=== PATIENT | male | born 1970 | race Caucasian/White ===

== ENCOUNTER 2019-01-24 05:28 | Emergency (ER) | payer OTHER ==
[2019-01-24] MEDS ORDERED: diphenhydrAMINE 50 MG/ML SDV IVPUSH ONE (05:49)
[2019-01-24] MEDS ORDERED: methylPREDNISolone Sodium Succinate 125 MG/2 ML SDV IVPUSH ONE (05:50)
[2019-01-24] MEDS ORDERED: Famotidine 20 MG/2 ML SDV IVPUSH ONE (05:50)
--- NOTE | 2019-01-24 05:56 | EDM.PDOC ---
ED HPI GENERAL MEDICAL PROBLEM - General Chief Complaint: Allergic Reaction Stated Complaint: ALLERGIC REACTION Time Seen by Provider: 01/24/19 05:44 Source of Information: Reports: Patient History Limitations: Reports: No Limitations - History of Present Illness INITIAL COMMENTS - FREE TEXT/NARRATIVE: This is a 48-year-old male. He flew into [facility] around midnight. He noted when he got back to his apartment he began to have some swelling of the face and the upper lip and developed a rash. He felt like his throat was closing and he had a lump in his throat. He took some Benadryl and some Claritin and comes to the ER for evaluation. He states that he had a rash on his back especially. He does feel like his throat is better but he still has a lump and he is breathing okay and has had no wheezing. He says he's had reactions like this for the last couple of years and they seem to be random. They have and are doing a workup but they can't seem to find out why he is having these reactions. He takes no prescription medications. He denies eating anything unusual or anything he hasn't eaten in the past. No recent illnesses. - Related Data Allergies Allergy/AdvReac Type Severity Reaction Status Date / Time No Known Allergies Allergy Verified 01/24/19 05:35 Home Meds: Home Meds Loratadine [Claritin] 10 mg PO DAILY 01/24/19 [History] diphenhydrAMINE [Benadryl] 50 mg PO DAILY 01/24/19 [History] Past Medical History - Past Health History Medical/Surgical History: Denies Medical/Surgical History Social & Family History - Family History Family Medical History: Noncontributory - Tobacco Use Smoking Status *Q: Never Smoker Second Hand Smoke Exposure: No - Caffeine Use Caffeine Use: Reports: Coffee, Soda - Recreational Drug Use Recreational Drug Use: No ED ROS ALLERGIC REACTION - Review of Systems Review Of Systems: See Below Constitutional: Denies: Fever, Chills HEENT: Reports: Other (As per history of present illness) Respiratory: Denies: Shortness of Breath, Wheezing, Cough Cardiovascular: Denies: Chest Pain Endocrine: Reports: No Symptoms GI/Abdominal: Reports: No Symptoms : Reports: No Symptoms Musculoskeletal: Reports: No Symptoms Skin: Reports: Pruritis, Rash, Other (As per history of present illness) Neurological: Reports: No Symptoms Psychiatric: Reports: No Symptoms Hematologic/Lymphatic: Reports: No Symptoms ED EXAM GENERAL NO PERIP PULSE - Physical Exam Exam: See Below Exam Limited By: No Limitations General Appearance: Alert, WD/WN, No Apparent Distress Eye Exam: Bilateral Eye: Normal Inspection (He does have some puffiness around his eyes noted) Ears: Normal External Exam, Normal Canal, Normal TMs Nose: Normal Inspection Throat/Mouth: No Airway Compromise, Other (The oropharynx does not appear to be especially swollen the uvula and the soft palate are minimally swollen, he does have a swollen upper lip but not a lower lip or a tongue) Head: Normocephalic Neck: Supple Respiratory/Chest: No Respiratory Distress, Lungs Clear, Normal Breath Sounds Cardiovascular: Regular Rate, Rhythm, No Murmur GI/Abdominal: Soft, Non-Tender Back Exam: Full Range of Motion, Other (Areas a patchy rash on his back noted) Extremities: Normal Range of Motion, Other (He appears to have a slight rash noted on his extremities) Neurological: Alert, Oriented Psychiatric: Normal Affect, Normal Mood Skin Exam: Warm, Dry Course - Vital Signs Last Recorded V/S: Last Vital Signs Temp 95.6 F 01/24/19 05:31 Pulse 94 01/24/19 05:31 Resp 16 01/24/19 05:31 BP 131/83 01/24/19 05:31 Pulse Ox 97 01/24/19 05:31 - Orders/Labs/Meds Orders: Active Orders 24 hr Category Date Time Status Sodium Chloride 0.9% [Normal Saline] 1,000 ml Med 01/24/19 06:00 Active IV ASDIRECTED Medication Orders Sodium Chloride (Normal Saline) 1,000 mls @ 500 mls/hr IV ASDIRECTED VASHTI Last Admin: 01/24/19 05:59 Dose: 500 mls/hr Meds: Medications Generic Name Dose Route Start Last Admin Trade Name Freq PRN Reason Stop Dose Admin Sodium Chloride 1,000 mls @ 500 mls/hr 01/24/19 06:00 01/24/19 05:59 Normal Saline IV 500 mls/hr ASDIRECTED VASHTI Administration Discontinued Medications Generic Name Dose Route Start Last Admin Trade Name Freq PRN Reason Stop Dose Admin Diphenhydramine HCl 25 mg 01/24/19 05:49 01/24/19 05:59 Benadryl IVPUSH 01/24/19 05:50 25 mg ONETIME ONE Administration Famotidine 20 mg 01/24/19 05:50 01/24/19 05:59 Pepcid IVPUSH 01/24/19 05:51 20 mg ONETIME ONE Administration Methylprednisolone Sodium Succinate 125 mg 01/24/19 05:50 01/24/19 05:59 Solu-Medrol IVPUSH 01/24/19 05:51 125 mg ONETIME ONE Administration - Re-Assessments/Exams Free Text/Narrative Re-Assessment/Exam: 01/24/19 06:34 Patient is feeling much better and his lip is markedly less swollen and he doesn 't have a lump in his throat and is longer the itching. He wants to go home. Suggested he get some Tagamet and start taking it on a daily basis to help with the allergy symptoms. Departure - Departure Time of Disposition: 06:37 Disposition: Home, Self-Care 01 Condition: Good Clinical Impression: Allergic reaction Qualifiers: Encounter type: initial encounter Qualified Code(s): T78.40XA - Allergy, unspecified, initial encounter - Discharge Information *PRESCRIPTION DRUG MONITORING PROGRAM REVIEWED*: Not Applicable *COPY OF PRESCRIPTION DRUG MONITORING REPORT IN PATIENT SHELTON: Not Applicable Instructions: Allergies, Adult, [id number] Referrals: PCP,None [Primary Care Provider] - Forms: ED Department Discharge Additional Instructions: Get some cimetidine, Tagamet, [id number] and take anywhere from 200-400 mg a day to help with the allergic reaction, continue with the Claritin and Benadryl as needed, if your symptoms seem to worsen then return to the ER especially if there is lip or tongue or throat swelling. - My Orders Last 24 Hours: My Active Orders 01/24/19 06:00 Sodium Chloride 0.9% [Normal Saline] 1,000 ml IV ASDIRECTED - Assessment/Plan Last 24 Hours: My Active Orders 01/24/19 06:00 Sodium Chloride 0.9% [Normal Saline] 1,000 ml IV ASDIRECTED
[2019-01-24] MEDS ORDERED: Sodium Chloride 0.9% 1,000 ML IV SCH (06:00)
== END 2019-01-24 06:48 | disposition home or self-care (01) ==
LOC: JD.ED 05:28
DX: T78.40XA Allergy, unspecified, initial encounter (principal)
CPT/HCPCS: 96361; 96374; 96375; 99284; J1200; J2930; J3490; J7040; 99283